=== PATIENT | female | born 1965 | race Caucasian/White ===

== ENCOUNTER 2020-08-21 08:20 | Day surgery (SDC) | payer BC, SELFPAY ==
[2020-08-19 08:37] VITALS: BMI 25.6
[2020-08-21] VITALS (7 sets, daily range): BP systolic 103–135; BP diastolic 62–84; PULSE 72–83; RESP 11–16; TEMP 36.4; O2SAT 97–100; BMI 24.0
[2020-08-21] MEDS: SCOPOLAMINE 1 PATCH TOP (08:47)
[2020-08-21] MEDS: ACETAMINOPHEN 325 MG TABLET 975 MG PO (08:47)
[2020-08-21] MEDS: LACTATED RINGERS 1,000 ML 42 ML IV ×2 (09:13→12:01)
--- NOTE | 2020-08-21 09:25 | SUR.PREOP ---
Chlorhexidine not done per Dr. Liriano
[2020-08-21] MEDS: CEFAZOLIN 2 GM/100 ML FROZ.PIGGY IV (09:34)
--- NOTE | 2020-08-21 10:37 | SUR.OPER ---
Supine on padded OR bed, head on pillow, arms secured on padded arm boards at <90 degrees abduction, legs uncrossed, safety belt at hip, tape over blanket over right lower leg. Left leg surgical site elevated on blankets, and bump placed under left hip by Surgeon
[2020-08-21] MEDS: BUPIVACAINE 0.25% W/ EPI 30 ML VIAL INJ (10:55)
[2020-08-21] MEDS: LACTATED RINGERS 1,000 ML 120 ML IV (11:49)
--- NOTE | 2020-08-21 12:04 | PM.PREOP ---
Pre-operative Note COVID-19 COVID-19 status: Negative Interval Note History & Physical reviewed/Exam performed by Physician: Yes Changes to H&P: No
--- NOTE | 2020-08-21 12:05 | P.OP_ITS ---
Operative Date/Time/Diagnoses Date of procedure: 08/21/20 Time of procedure: 10:30 Pre-op diagnosis: Bimalleolar ankle fracture, left Tobacco use disorder Post-op diagnosis: same Procedure & Clinicians Procedure: Open reduction internal fixation bimalleolar ankle fracture, CPT code 71851 Same procedure as scheduled: Yes Indications: Patient is a 55-year-old female that had a ankle fracture a little over 3 weeks ago. This was a bimalleolar ankle fracture additional layers comminution anteriorly level with a ATFL a small chip off the distal tibia and comminution. She was initially treated conservatively at an outside institution and presented to my clinic with persistent symptoms pain and unhappy with her care. She is found to have a bimalleolar ankle fracture. She does have a tobacco use disorder and cessation of smoking was discussed with her. She has no other contraindications to surgery. Discussed the risks and benefits of surgery. She would benefit from open reduction internal fixation of her bimalleolar ankle fracture to reduce the risk of malunion nonunion and posttraumatic arthritis. The risks and benefits of the procedure have been discussed with the patient even opportunity to ask questions. The risks of surgery include but are not limited to infection, malunion, nonunion, persistence of pain, damage to nerves and blood vessels, posttraumatic arthritis, DVT, PE, cardiopulmonary complications and . The patient expressed a thorough understanding of the risks and benefits of surgery and has elected to proceed. Consent was signed . Surgeon: Carmina Liriano Click Yes if Unassisted: Yes Anesthesia Type: Peripheral nerve block Operative Notes Findings: Bimalleolar ankle fracture. The lateral malleolus oblique fracture in the at the level of the AITFL with comminution anteriorly both the area of the fibula and small comminution and at the [place] level. There was no large a repairable fragment. Lateral malleolus fracture was stabilized with a lag screw and a 6 hole 1/3 tubular plate from the Arthrex set. Distal 2 screws were placed locking to reduce prominence. Proximal screws were nonlocking screws. Additionally on inspection of the ankle joint there was a partial-thickness scuff in the lateral talar dome. No full-thickness lesion. Attention was then turned medially there is a anterior medial malleolus fracture this was displaced with intra-articular involvement. This was cleaned and reduced and fixated with 2 4.0 cannulated screws from the Arthrex set. The syndesmosis was then stressed and found to be stable. Closure Type: primary Specimen(s): none sent Prosthetic devices, grafts, tissues, transplants, or devices: Arthrex 6 hole 1/3 tubular plate. Two distal locking screws, proximal cortical screws Arthrex 4.0 cannulated screws, partially threaded x2 Estimated Blood Loss (mL): 20 Blood products transfused: none Tourniquet time (min): 78 Procedure in detail: In the preoperative holding area, the appropriate limb and sites were marked, consent was again reviewed with the patient and all questions answered. The patient was brought to the operating room, placed on the operating table and given anesthetic. Regional block was placed by the anesthesia team for postoperative pain control. Following successful levels of anesthesia, the patient was appropriately padded, position secured to the table. An SCD was placed on the contralateral leg. All bony prominences were well padded. A well-padded thigh tourniquet was placed. The surgical leg was then prepped and draped in the usual sterile fashion. A formal time-out procedure was completed confirming the patient, site and side of surgery and administration of appropriate preoperative antibiotics. All were in agreement. An Esmarch bandage was utilized to exsanguinate the limb and the tourniquet was raised on the thigh to 250 mmHg. Lateral incision was made over the fibula. Dissection was carried through the skin and subcutaneous tissue to the level of the fibula. The fracture was exposed and cleaned of debris. Fracture was subacute so soft callus was debrided to expose the fracture site. Fracture was reduced, restoring length r otation and anatomic alignment. This was stabilized with 3.5 lag screw. Next a 6 hole 1/3 tubular locking neutralization plate was placed and secured in standard fashion. Appropriate implant positioning was confirmed on intraoperative fluoro. There was comminution at the anterior aspect of the distal fibula fracture this was cleaned in the lateral joint inspected. There was a partial-thickness cuff marked on the lateral talar dome but no full-thickness lesions. Medial malleolus fixation: Attention was then turned to the medial side of the joint. A standard medial approach to the medial malleolus as it. The periosteum was reflected at the fracture site and this was cleaned and reduced with a pointed reduction clamp. Two parallel K-wires were then placed and alignment checked on x-ray to confirm adequate position. The wires were then sequentially overdrilled and 2x 4.0mm cannulated screws were placed. The reduction was stable. The syndesmosis was then stressed under fluoroscopic guidance and direct observation in the AP and lateral planes. No opening was noted. Stability was confirmed under fluoro. The wounds were irrigated. We were quite satisfied with result clinically and radiographically. The tourniquet was released, and hemostasis achieved. The deep tissue was closed with 2 O Vicryl. Subcutaneous tissue was closed with 4 0 Monocryl in the skin with 3 O nylon. A sterile bulky dressing and knee splint were applied. All counts were correct. The patient was then awoken and transported to recovery room in good condition. There no known immediate complications from this procedure. Complications: none Post-operative Condition: stable Disposition: PACU Plan for aftercare: Nonweightbearing left lower extremity x2 weeks. Then will start early partial weight-bearing protocol between 2 and 4 weeks. Aspirin for DVT prophylaxis. Calcium and vitamin-D for bone health. Encouraged cessation of smoking.
[2020-08-21] MEDS: OXYCODONE IR 5 MG TABLET PO (12:25)
[2020-08-21] MEDS: LORazepam 2 MG/ML INJ 0.5 MG IV (12:25)
== END 2020-08-21 13:00 | disposition home or self-care (01) ==
PROVIDERS: PCP Internal Medicine; Referring Provider Orthopaedic Surgery Foot and Ankle Surgery; Visit Provider Orthopaedic Surgery Foot and Ankle Surgery
PROC: (CPT 27814; principal; 2020-08-21 09:45)
DX: S82.842A Displaced bimalleolar fracture of left lower leg, initial encounter for closed fracture (principal); Z72.0 Tobacco use; W01.0XXA Fall on same level from slipping, tripping and stumbling without subsequent striking against object, initial encounter; Y93.41 Activity, dancing; G40.909 Epilepsy, unspecified, not intractable, without status epilepticus; M19.90 Unspecified osteoarthritis, unspecified site; M06.9 Rheumatoid arthritis, unspecified
CPT/HCPCS: 27814; J0690; J1100; J1885; J2060; J2250; J2405; J2704; J3010

== ENCOUNTER 2023-06-02 18:20 | Emergency (ER) | payer OTHER, SELFPAY ==
[2023-06-02 18:24] VITALS: BP 129/77; PULSE 98; RESP 16; TEMP 36.3; O2SAT 97; BMI 21.4
--- NOTE | 2023-06-02 18:32 | DI.CT.S_ITS ---
PROCEDURE: CT HEAD/BRAIN WO CON INDICATIONS: fall with head injury TECHNIQUE: Noncontrast 4.5 mm thick angled axial sections acquired from the foramen magnum to the vertex, with coronal and sagittal reformats. For radiation dose reduction, the following was used: automated exposure control, adjustment of mA and/or kV according to patient size. COMPARISON: [facility], MR, BRAIN W&WO CONTRAST, 02/27/2014, 15:48. [facility], CT, CT CERVICAL SPINE WO CON, 06/02/2023, 18:43. [facility], CT, HEAD WITHOUT CONTRAST, 01/10/2014, 14:17. FINDINGS: Image quality: Mild streak artifact can be seen through the skull base. CSF spaces: Basal cisterns are patent. No extra-axial fluid collections. The ventricles are symmetric in size and shape. Brain: No intracranial bleeds or masses. There is cerebral volume loss for age, with resultant ventricular and sulcal prominence. There are periventricular and deep white matter chronic small vessel ischemic changes. There is intracranial internal carotid artery atherosclerosis. Skull and face: Calvarium and visualized facial bones appear intact, without suspicious lesions. Sinuses: Visualized sinuses and mastoids are clear. IMPRESSION: No acute intracranial hemorrhage is seen. No acute intracranial process is seen. Dictated by: Reece Jeffries M.D. on 06/02/2023 at 18:09 Approved by: Reece Jeffries M.D. on 06/02/2023 at 18:12
--- NOTE | 2023-06-02 18:32 | DI.CT.S_ITS ---
PROCEDURE: CT CERVICAL SPINE WO CON INDICATIONS: fall with head injury, etoh TECHNIQUE: Noncontrast 3 mm thick sections acquired from the skull base to the T4 level. Sagittal and coronal reformats were then constructed. For radiation dose reduction, the following was used: automated exposure control, adjustment of mA and/or kV according to patient size. COMPARISON: None. FINDINGS: Image quality: Excellent. Bones: No fractures or dislocations. Visualized superior ribs are intact. Cervical spine fixation hardware is seen anteriorly at the C5 through C7 levels. No findings of hardware failure or hardware loosening are seen. Focal degenerative change is seen involving the C1-C2 interface anteriorly. There is moderate disc space narrowing seen at C7-T1, with minimal anterolisthesis seen at this site. Milder degenerative changes are seen elsewhere. Soft tissues: Prevertebral soft tissues are normal in thickness. No paravertebral hematomas. No apical pneumothoraces. IMPRESSION: Negative for acute fracture. Postoperative and degenerative changes are seen. Dictated by: Reece Jeffries M.D. on 06/02/2023 at 18:12 Approved by: Reece Jeffries M.D. on 06/02/2023 at 18:13
--- NOTE | 2023-06-03 05:37 | ED_ITS ---
HPI - Head Injury General Chief complaint: Head Injury Stated complaint: lt eye lac/got hit Time Seen by Provider: 06/02/23 18:32 Source: patient and other Mode of arrival: Wheelchair Related Data Home Medications Medication Instructions Recorded Confirmed lorazepam 1 mg tablet (Ativan) 1 mg PO PRN PRN Anxiety ##0 11/15/11 08/19/20 estradiol 1 mg tablet 0.5 mg PO QDAY 08/21/20 08/21/20 oxycodone-acetaminophen 5 mg-325 1 tab PO Q4H PRN Pain (Scale Score 08/21/20 08/21/20 mg tablet (Percocet) 1-3) Previous Rx's Medication Instructions Recorded oxycodone 5 mg tablet 5 - 10 mg PO Q4H PRN pain #42 tabs 08/21/20 Allergies Allergy/AdvReac Type Severity Reaction Status Date / Time No Known Drug Allergies Allergy Verified 06/02/23 18:24 Patient History Medical History (Updated 06/02/23 @ 19:27 by Sherrie Harrison RN) Ankle fracture, left (08/2020) Arthritis Osteoarthritis Seizures Surgical History (Updated 08/19/20 @ 08:41 by Etelvina Cooper RN) History of hysterectomy History of lumbar fusion (2014) History of surgery Hx of shoulder surgery Status post cervical spinal fusion Social History Smoking Status: Current every day smoker Smoking Status: Current every day smoker alcohol intake frequency: a few times a week Substance Use Type: does not use Exam Initial Vital Signs Initial Vital Signs: Vital Signs Temperature 97.3 F L 06/02/23 18:24 Pulse Rate 98 H 06/02/23 18:24 Respiratory Rate 16 06/02/23 18:24 Blood Pressure 129/77 06/02/23 18:24 Pulse Oximetry 97 06/02/23 18:24 Oxygen Delivery Method Room Air 06/02/23 18:24 MDM - Head Injury Lab Data Labs: Point of Care Testing Glucose POC [address] scan - head: Radiologist's Impression: Close Head CT (Signed) Reece Jeffries - 06/02/[address] (Signed) Reece Jeffries - 06/02/[address] [address] [address] Scan Report Signed Patient: Etelvina Shields MR#: [id number] : 1965 Acct:[id number] Age/Sex: 58 / F Date of Service: 06/02/23 Loc: ED Accession Number: [id number] ?? Procedure: CT head/brain wo con Ordering Provider: Rian Olivas D.O. PROCEDURE:? CT HEAD/BRAIN WO CON ? INDICATIONS:? fall with head injury ? TECHNIQUE:? Noncontrast 4.5 mm thick angled axial sections acquired from the foramen magnum to the vertex, with coronal and sagittal reformats.? For radiation dose reduction, the following was used:? automated exposure control, adjustment of mA and/or kV according to patient size.? ? COMPARISON:? [facility], MR, BRAIN W&WO CONTRAST, 02/27/2014, 15:48.? [facility], CT, CT CERVICAL SPINE WO CON, 06/02/2023, 18:43.? [facility], CT, HEAD WITHOUT CONTRAST, 01/10/2014, 14:17. ? FINDINGS:? Image quality:? Mild streak artifact can be seen through the skull base. ? CSF spaces:? Basal cisterns are patent.? No extra-axial fluid collections.? The ventricles are symmetric in size and shape.? ? Brain:? No intracranial bleeds or masses.? There is cerebral volume loss for age, with resultant ventricular and sulcal prominence.? There are periventricular and deep white matter chronic small vessel ischemic changes.? There is intracranial internal carotid artery atherosclerosis.? ? Skull and face:? Calvarium and visualized facial bones appear intact, without suspicious lesions.? ? Sinuses:? Visualized sinuses and mastoids are clear.? IMPRESSION:? No acute intracranial hemorrhage is seen.? ? No acute intracranial process is seen.? ? ? Dictated by: Reece Jeffries M.D. on 06/02/2023 at 18:09 ? ? Approved by: Reece Jeffries M.D. on 06/02/2023 at 18:12?? CT - cervical spine: Radiologist's Impression: Close Head CT (Signed) Reece Jeffries - 06/02/[address] (Signed) Reece Jeffries - 06/02/23 [facility] [address] [address] [address] Scan Report Signed Patient: Etelvina Shields MR#: [id number] : 1965 Acct:[id number] Age/Sex: 58 / F Date of Service: 06/02/23 Loc: ED Accession Number: [id number] ?? Procedure: CT cervical spine wo con Ordering Provider: Rian Olivas D.O. PROCEDURE:? CT CERVICAL SPINE WO CON ? INDICATIONS:? fall with head injury, etoh ? TECHNIQUE:? Noncontrast 3 mm thick sections acquired from the skull base to the T4 level.? Sagittal and coronal reformats were then constructed.? For radiation dose reduction, the following was used:? automated exposure control, adjustment of mA and/or kV according to patient size.? ? COMPARISON:? None. ? FINDINGS:? Image quality:? Excellent.? ? Bones:? No fractures or dislocations.? Visualized superior ribs are intact.? ? Cervical spine fixation hardware is seen anteriorly at the C5 through C7 levels.? No findings of hardware failure or hardware loosening are seen. ? Focal degenerative change is seen involving the C1-C2 interface anteriorly. There is moderate disc space narrowing seen at C7-T1, with minimal anterolisthesis seen at this site.? Milder degenerative changes are seen elsewhere.? ? ? Soft tissues:? Prevertebral soft tissues are normal in thickness.? No paravertebral hematomas.? No apical pneumothoraces.? ? ? IMPRESSION:? Negative for acute fracture. ? Postoperative and degenerative changes are seen.? Dictated by: Reece Jeffries M.D. on 06/02/2023 at 18:12 ? ? Approved by: Reece Jeffries M.D. on 06/02/2023 at 18:13?? MDM Narrative Medical decision making narrative: CT head and Cspine were reviewed and are negative. Discharge Plan Departure Patient Disposition: Left Without Being Seen Clinical Impression: Patient left without being seen Prescriptions: No Action lorazepam [Ativan] 1 MG tablet 1 mg PO PRN PRN (Reason: Anxiety) Qty: 0 oxycodone-acetaminophen [Percocet] 5-325 mg Tablet 1 tab PO Q4H PRN (Reason: Pain (Scale Score 1-3)) estradiol 1 MG tablet 0.5 mg PO QDAY oxycodone 5 mg tablet 5 - 10 mg PO Q4H PRN (Reason: pain) Qty: 42 0RF
== END 2023-06-02 19:10 | disposition left against medical advice (07) ==
PROVIDERS: Emergency Provider Emergency Medicine; PCP Internal Medicine
DX: S09.90XA Unspecified injury of head, initial encounter (principal); W18.30XA Fall on same level, unspecified, initial encounter
CPT/HCPCS: 70450; 72125; 82962; 99281